=== PATIENT | male | born 1950 | race African-American/Black ===

== ENCOUNTER 2021-05-30 10:20 | Outpatient (CLI) | payer MEDICARE | END 2021-05-30 10:21 | disposition home or self-care (01) | LOC: CSHCT 10:20 | PROVIDERS: ATTEND Internal Medicine Hematology & Oncology | DX: C34.02 Malignant neoplasm of left main bronchus (principal); J98.59 Other diseases of mediastinum, not elsewhere classified | CPT/HCPCS: 71260 ==